=== PATIENT | female | born 1955 | race African-American/Black ===

== ENCOUNTER 2017-05-29 15:54 | Emergency (ER) | payer OTHER ==
[~2017-05-29] VITALS: Ht 157.5 cm; Wt 61.2 kg
[~2017-05-29 15:54] MED LIST: AMBEREN PO; AZITHROMYCIN 2250 MG PO; B-12250 MCG; MEDROLDOSEPACK PO; PERCOCET 5-3251 EACH PO; PROTONIX40 M2 PO; VALIUM2 MG; VERAPAMIL E.R240 M1 PO
[2017-05-29] MEDS ORDERED: SORINE 80 MG TA80 MG PO (17:21)
[2017-05-29] MEDS ORDERED: OXYCONTIN10 M1 PO (17:22)
[2017-05-29] MEDS ORDERED: FOLIC ACID1 MG PO (17:22)
[2017-05-29] MEDS ORDERED: NEURONTIN 300300 M1 PO (17:22)
[2017-05-29] MEDS ORDERED: XARELTO10 MG PO (17:23)
[2017-05-29 20:00] VITALS: BP 111/51
== END 2017-05-29 20:02 | disposition still patient (30) ==
LOC: ER 15:54
DX: S10.93XA Contusion of unspecified part of neck, initial encounter (principal); S30.0XXA Contusion of lower back and pelvis, initial encounter; S60.512A Abrasion of left hand, initial encounter; S80.211A Abrasion, right knee, initial encounter; S09.8XXA Other specified injuries of head, initial encounter; M19.90 Unspecified osteoarthritis, unspecified site; G89.29 Other chronic pain; Z95.0 Presence of cardiac pacemaker; Z86.73 Personal history of transient ischemic attack (TIA), and cerebral infarction without residual deficits; Z90.710 Acquired absence of both cervix and uterus; Z88.6 Allergy status to analgesic agent; W18.30XA Fall on same level, unspecified, initial encounter; Y93.89 Activity, other specified; Y92.89 Other specified places as the place of occurrence of the external cause; Y99.8 Other external cause status; Z79.01 Long term (current) use of anticoagulants